=== PATIENT | female | born 2000 | race Caucasian/White ===

== ENCOUNTER 2024-06-11 20:27 | Emergency (ER) | payer OTHER, SELFPAY ==
[2024-06-11 20:31] VITALS: BP 145/80; PULSE 106; TEMP 36.7; O2SAT 99; BMI 36.2
--- NOTE | 2024-06-11 20:48 | ED_ITS ---
HPI - Nausea/Vomiting/Diarrhea General Chief complaint: Nausea/Vomiting/Diarrhea Stated complaint: vomiting Time Seen by Provider: 06/11/24 20:30 Source: patient Mode of arrival: walk-in Limitations: no limitations History of Present Illness HPI Narrative: Patient presents ED complaining of nausea vomiting diarrhea. She states that she has been throwing up since about 1 or 2:00 this afternoon. She is unable to keep anything down. Patient states they were all together for [place] a couple of days ago and now a lot of the family members are coming down with similar symptoms. She complains of diffuse abdominal cramping. No fevers. Patient states she started to get dizzy so she came in because she felt like she was getting dehydrated. She said she feels thirsty but anything she tries to keep and just comes back up. Patient states she does not like needles and does not want an IV she wants to try oral medication first to see if her stomach can get settled enough to have some ice chips. She is alert and oriented in no acute distress. Mildly tachycardic at 106. Related Data Previous Rx's ?Medication ?Instructions ?Recorded ondansetron 4 mg disintegrating 4 mg PO DAILY PRN nausea and 06/11/24 tablet vomiting #15 tabs Allergies Allergy/AdvReac Type Severity Reaction Status Date / Time No Known Drug Allergies Allergy Verified 06/11/24 20:35 Review of Systems ROS Status of ROS 10 or more systems reviewed and unremark able except as noted in history and below PFSH PFSH Social History Little interest or pleasure in doing things: not at all Feeling down, depressed, or hopeless: not at all Exam Narrative Exam Narrative: Time Seen: [] Vital Signs: [Per nurse's notes.] General: [Alert] Skin: [Warm, dry, no rash.] Head: [Normocephalic, atraumatic.] Neck: [Supple, trachea midline.] Eye: [Pupils are equal, round and reactive to light, extraocular movements are intact, normal conjunctiva.] Ears, nose, mouth and throat: oral mucosa moist. Cardiovascular: [Regular rate and rhythm, no murmur.] Respiratory: [Lungs are clear to auscultation, respirations are non-labored, breath sounds are equal.] Chest wall: [No tenderness, no deformity.] Gastrointestinal: [Soft, very mild diffuse crampy tenderness, non distended, normal bowel sounds.] MSK: 5 out of 5 muscle strength x 4 extremities no calf pain or edema Lymphatics: [No lymphadenopathy.] Psychiatric: [Cooperative, appropriate mood & affect.] Neurological: [Alert and oriented to person, place, time, and situation, no focal neurological deficit observed.] Constitutional Vital Signs, click to edit/add: Last Vital Signs Temp 98.0 F 06/11/24 20:31 Pulse 106 H 06/11/24 20:31 Resp 18 06/11/24 20:31 BP 145/80 H 06/11/24 20:31 Pulse Ox 99 06/11/24 20:31 O2 Del Method Room Air 06/11/24 20:31 Course Vital Signs Vital signs: Vital Signs Temperature 98.0 F 06/11/24 20:31 Pulse Rate 106 H 06/11/24 20:31 Respiratory Rate 18 06/11/24 20:31 Blood Pressure 145/80 H 06/11/24 20:31 Pulse Oximetry 99 06/11/24 20:31 Oxygen Delivery Method Room Air 06/11/24 20:31 Temperature 98.0 F 06/11/24 20:31 Pulse Rate 106 H 06/11/24 20:31 Respiratory Rate 18 06/11/24 20:31 Blood Pressure 145/80 H 06/11/24 20:31 Pulse Oximetry 99 06/11/24 20:31 Oxygen Delivery Method Room Air 06/11/24 20:31 MDM - Nausea/Vomiting/Diarrhea MDM Narrative Medical decision making narrative: Patient was feeling better after oral Zofran. She was able to keep down ice chips. I did dispense some Zofran here for her to go home with. I called in a prescription for Zofran. Patient was instructed to advance diet as tolerated. Return to ED if worsening symptoms otherwise rest and gentle rehydration at home. Take Zofran as needed. Return to ED if worsening symptoms. Most likely a viral gastroenteritis. Differential Diagnosis Differential diagnosis: Likely food poisoning, gastroenteritis and dehydration Discharge Plan Discharge Chief Complaint: Nausea/Vomiting/Diarrhea Clinical Impression: Gastroenteritis Patient Disposition: Home, Self-Care Time of Disposition Decision: 21:32 Condition: Good Mode of Transportation: Private Vehicle Prescriptions / Home Meds: New ondansetron 4 mg tablet,disintegrating 4 mg PO DAILY PRN (Reason: nausea and vomiting) Qty: 15 0RF Print Language: Kiswahili Instructions: Acute Nausea and Vomiting (ED) Referrals: [facility]SC[facility] [Primary Care Provider] - 1 week
[2024-06-11] MEDS: ONDANSETRON 4 MG RAPDIS TABLET SL (20:52)
[2024-06-11] MEDS: ONDANSETRON 4 MG RAPDIS TABLET 12 MG SL (21:42)
[2024-06-11 21:44] VITALS: BP 146/90; PULSE 95; O2SAT 100
== END 2024-06-11 21:44 | disposition home or self-care (01) ==
PROVIDERS: Emergency Provider Emergency Medicine; PCP Family Medicine
DX: K52.9 Noninfective gastroenteritis and colitis, unspecified (principal)
CPT/HCPCS: 99283; Q0162